=== PATIENT | female | born 1970 | race Caucasian/White ===

== ENCOUNTER 2022-02-17 21:45 | Inpatient (IN) | payer MEDICAID ==
[~2022-02-17] VITALS: Ht 154.7 cm; Wt 70.8 kg
--- NOTE | 2022-02-17 22:04 | NUR ---
TO ER BED 2. [id number] C/O R FOOT PAIN INFECTION X 3 DAYS. DESCRIBES PAIN BURNING 8/10 ON P/S. PT TOOK UNPRESCRIBED AMOXICILLIN X 2 DAYS. AWAITING MD FAITH
[2022-02-17] MEDS ORDERED: ONDANSETRON HCL/PF 4 MG/2 ML VIAL IVP ONE (22:30)
[2022-02-17] MEDS ORDERED: IV NS 0.9% 500 ML BAG IV ONE (22:30)
[2022-02-17] MEDS ORDERED: VANCOMYCIN 1 GM in IV D5W 250 ML IV ONE (22:30)
[2022-02-17] MEDS ORDERED: MORPHINE SULFATE INJ 2 MG/ML DISP.SYRIN IV ONE (22:30)
--- NOTE | 2022-02-17 23:00 | NUR ---
IV LINE ESTABLISHED, LHAND 24G
[2022-02-17] MEDS ORDERED: VANCOMYCIN 1 GM VIAL ONE (23:01)
[2022-02-17] MEDS ORDERED: MORPHINE SULFATE INJ 4 MG/ML DISP.SYRIN ONE (23:01)
[2022-02-17] MEDS ORDERED: ONDANSETRON HCL/PF 4 MG/2 ML VIAL ONE (23:01)
[2022-02-17] MEDS ORDERED: diphenhydrAMINE HCL ELIX 25 MG/10 ML UDC ONE (23:17)
[2022-02-17] MEDS ORDERED: diphenhydrAMINE HCL 50 MG/ML VIAL ONE (23:18)
[2022-02-17 23:23] LABS: BASOPHILS % (AUTO) 0.1 % (0.0-2.0); EOSINOPHILS % (AUTO) 0.8 % (0.0-6.0); HEMATOCRIT 43 % (33-45); HEMOGLOBIN 14.7 g/dL (11.5-14.8); LYMPHOCYTES # (AUTO) 0.3 K/uL (0.8-4.8); LYMPHOCYTES % (AUTO) 1.3 % (20.0-44.0); MEAN CORPUSCULAR HGB CONC 34 g/dl (31.0-36.0); MEAN CORPUSCULAR VOLUME 89 fL (82-100); MONOCYTES # (AUTO) 0.7 K/uL (0.1-1.30); MONOCYTES % (AUTO) 3.2 % (2.0-12.0); NEUTROPHILS # (AUTO) 20.9 K/uL (1.8-8.9); NEUTROPHILS % (AUTO) 94.6 % (43.0-81.0); PLATELET COUNT (AUTO) 207 K/uL (150-450); RED BLOOD CELL COUNT(AUTO) 4.83 MIL/uL (4.0-5.2); WHITE BLOOD COUNT (AUTO) 22.1 K/uL (4.3-11.0)
--- NOTE | 2022-02-17 23:25 | NUR ---
RASH NOTED ON L FOREARM AFTER ADMINISTERING MEDS, STOPPED IV INFUSION, PT DENIES ANY SOB. MADE AWARE.
--- NOTE | 2022-02-17 23:27 | NUR ---
COVID ANTIGEN SWAB COLLECTED AND SENT TO LAB
[2022-02-17] MEDS ORDERED: ACETAMINOPHEN 325 MG TABLET PO PRN (23:30)
[2022-02-17] MEDS ORDERED: diphenhydrAMINE HCL 50 MG/ML VIAL IV ONE (23:30)
[2022-02-17] MEDS ORDERED: hydrALAZINE HCL IV 20 MG VIAL IV PRN (23:30)
[2022-02-17] MEDS ORDERED: ONDANSETRON HCL/PF 4 MG/2 ML VIAL IVP PRN (23:30)
[2022-02-17 23:38] LABS: CALCIUM, SERUM 8.1 mg/dL (8.5-10.1); CREATININE 2.2 mg/dL (0.6-1.3)
[2022-02-17 23:42] LABS: ALBUMIN 2.5 g/dL (3.4-5.0); BILIRUBIN,DIRECT 0.1 mg/dL (0.0-0.2); BILIRUBIN,TOTAL 0.4 mg/dL (0.2-1.0); TOTAL PROTEIN, SERUM 6.5 g/dL (6.4-8.2)
[2022-02-18] MEDS ORDERED: MEROPENEM 1,000 MG in IV NS 0.9% 100 ML IV SCH ×2
[2022-02-18] MEDS ORDERED: POTASSIUM CHLORIDE 20 MEQ TAB.PRT.SR PO ONE ×2 (00:51)
--- NOTE | 2022-02-18 00:55 | NUR ---
PT RESTING COMFORTABLY IN BED, ASLEEP BUT EASILY AROUSABLE. WILL CONTINUE TO MONITOR
--- NOTE | 2022-02-18 01:01 | NUR ---
ROOM 312-2
--- NOTE | 2022-02-18 01:05 | NUR ---
REPORT GIVEN TO ROLAND LUCAS FOR JESSIKA
--- NOTE | 2022-02-18 01:15 | NUR ---
MS RN NOTE ADMISSION ADMISSION V/S FOLLOWS: 96/57, HR-82 BPM, RR-18, SATURATION 98% IN ROOM AIR, T-97.5, AND WEIGHT 156,3 LBS.
[2022-02-18 01:20] VITALS: BP 96/57
[2022-02-18] MEDS ORDERED: MEROPENEM 1,000 MG in IV NS 0.9% 100 ML IV ONE (01:30)
[2022-02-18] MEDS ORDERED: MEROPENEM 1 G VIAL IV ONE (01:38)
[2022-02-18] MEDS: IV NS 0.9% 1,000 ML IV SCH ×2 (01:46→08:53)
[2022-02-18] MEDS ORDERED: CEFEPIME 2 GM in IV D5W 100 ML IV ONE (02:00)
--- NOTE | 2022-02-18 02:00 | NUR ---
MS RN NOTE FAX SENT TO NURSING AUDIO TAPE [facility] FOR CEFEPIME 2G. NOT AVAIL ON FLOOR.
[2022-02-18] MEDS: POTASSIUM CL. PREMIX PERIPHER. 50 ML IV SCH ×4 (02:32→05:57)
--- NOTE | 2022-02-18 02:39 | NUR ---
MS JET BLADE POLISHER NOTES PATIENT BROUGHT UP @0115 VIA STRETCHER ACCOMPANIED BY ONE ER PERSONNEL. PATIENT IS A/OX4. NO S/S OF APPARENT DISTRESS IN ROOM AIR, WITH UNLABORED, SYMMETRICAL BREATHING. DENIES PAIN AT THIS TIME. L. HAND #24G INTACT, PATENT-- STARTED ON IV NS AND ANTIBIOTIC MERREM RUNNING @200CC/HR AT THIS TIME. PATIENT R. FOOT SWELLING, RED, WARM TO TOUCH WITH SCANT SEROUS DRAINAGE AND TO WHAT IT LOOKS LIKE SOME NECROTIC PARTS-- PICTURE TAKEN. PATIENT WISHES TO BE FULL CODE AT THIS TIME. NO IMMUNIZATIONS (COVID AND FLU) AND REFUSES VACCINE UPON DISCHARGE PER PATIENT PREFERENCE. BELONGINGS INVENTORIED AND CHECKED WITH REMITTANCE CLERK, SIGNED AND CHARTED. NEEDS ATTENDED AT THIS TIME. SAFETY IN PLACE. WILL MONITOR PATIENT FOR NOW AND FOLLOW THROUGH DOCTOR'S ORDERS.
[2022-02-18] MEDS ORDERED: CEFEPIME 1 GM VIAL ONE (03:25)
[2022-02-18 06:22] LABS: EOSINOPHILS % (AUTO) 1.8 % (0.0-6.0); HEMATOCRIT 44 % (33-45); HEMOGLOBIN 14.6 g/dL (11.5-14.8); LYMPHOCYTES # (AUTO) 0.4 K/uL (0.8-4.8); LYMPHOCYTES % (AUTO) 2.3 % (20.0-44.0); MEAN CORPUSCULAR HGB CONC 34 g/dl (31.0-36.0); MEAN CORPUSCULAR VOLUME 90 fL (82-100); MONOCYTES # (AUTO) 0.7 K/uL (0.1-1.30); MONOCYTES % (AUTO) 3.7 % (2.0-12.0); NEUTROPHILS # (AUTO) 18.1 K/uL (1.8-8.9); NEUTROPHILS % (AUTO) 92.2 % (43.0-81.0); PLATELET COUNT (AUTO) 201 K/uL (150-450); RED BLOOD CELL COUNT(AUTO) 4.84 MIL/uL (4.0-5.2); WHITE BLOOD COUNT (AUTO) 19.6 K/uL (4.3-11.0)
[2022-02-18 07:04] LABS: ALBUMIN 2.3 g/dL (3.4-5.0); BILIRUBIN,TOTAL 0.4 mg/dL (0.2-1.0); CALCIUM, SERUM 7.8 mg/dL (8.5-10.1); CREATININE 1.9 mg/dL (0.6-1.3); MAGNESIUM 1.9 mg/dL (1.8-2.4); POTASSIUM 3.7 mmol/L (3.5-5.1); TOTAL PROTEIN, SERUM 6.4 g/dL (6.4-8.2)
--- NOTE | 2022-02-18 07:28 | NUR ---
MS RN OPENING NOTES PATIENT IN BED ASLEEP, EASILY AWAKEN UPON CALL. A/OX4. ABLE TO MAKE NEEDS KNOWN. ON RA, TOLERATING WELL. BREATHING EVEN AND UNLABORED. NOT IN ANY SIGN OF DISTRESS. IV ACCESS ON LEFT HAND G #24, INTACT AND PATENT, WITH NS RUNNING AT 150ML/HR. SAFETY MEASURES IN PLACE: BED IN LOWEST AND LOCKED POSITION, SIDE RAILS UP X2, CALL LIGHT WITHIN REACH. ENCOURAGED PT TO USE THE CALL LIGHT AND CALL IF ASSISTANCE IS NEEDED. WILL CONTINUE TO MONITOR PT.
--- NOTE | 2022-02-18 07:30 | NUR ---
MS RN CLOSING NOTE PATIENT IN BED. A/OX4. NO S/S OF APPARENT DISTRESS IN ROOM AIR. PAIN TOLERABLE. ALL NEEDS ATTENDED. ALL SCHEDULED MEDICATIONS ADMINISTERED. IV NS RUNNING @150CC/HR. SAFETY IN PLACE. ENDORSED TO CECELIA FOR CONTINUITY OF CARE.
[2022-02-18 08:00] VITALS: BP 101/72
--- NOTE | 2022-02-18 08:45 | NUR ---
WOUND CARE CONSULT: PT PRESENTS WITH VERY SWOLLEN AND DISCOLORED RT FOOT AND ANKLE AREA WITH ZHANG DRAINAGE, PRESENT ON ADMISSION. DR ORTIZ NOTIFIED OF DPM CONSULT. IN AGREEMENT WITH PLAN OF CARE.
[2022-02-18] MEDS: HEPARIN SODIUM, PORCINE 5000 UNITS/1 ML VIAL SQ SCH ×2 (08:53→21:37)
[2022-02-18] MEDS ORDERED: VANCOMYCIN HCL 1.25 GM in IV D5W 260 ML IV SCH (09:00)
--- NOTE | 2022-02-18 11:57 | NUR ---
RN NOTES PLAN OF CARE GIVEN TO JUSTUS WEEMS. FAUSTINA WILL CONTINUE CARE FOR REST OF THE DAY.
--- NOTE | 2022-02-18 15:05 | NUR ---
SS Note: Pt. requested to speak with SW regarding applying for [employer]. SW met with pt. and provided pt. with the [employer] [[phone]].
[2022-02-18] MEDS ORDERED: IV NS 0.9% 1,000 ML IV PRN (15:42)
--- NOTE | 2022-02-18 15:43 | NUR ---
Patient seen by Dr. Gautam with new wound care orders and MD also ordered MRI without contrast of right foor and ankle dx: edema and to rule out deep abscess, patient made aware of the situation, MRI checklist completed and filed in chart.
[2022-02-18 16:00] VITALS: BP 108/72
--- NOTE | 2022-02-18 18:45 | NUR ---
RN CLOSING NOTES Patient lying in bed, no apparent distress noted, no shortness of breath, breathing even and unlabored, no dizziness, no palpitations, no chest pain, remained afebrile. All due medications given per MD order, tolerating well. Patient has an order for IV fluids, peripheral IV line left hand, patent, intact and flushing well, covered with clean, intact and dry dressings and no swelling, no redness, no c/o pain or discomfort at site. Wound care rendered as per MD order, tolerated well. Aspiration precautions observed at all times, kept head of bed elevated, all needs anticipated, kept clean and dry, patient repositioned frequently, safety precautions in place, frequent visual checks rendered, side rails up X 2, brakes locked, call light left within reach, will endorse to next shift for continuity of care.
--- NOTE | 2022-02-18 19:38 | NUR ---
RN OPENING NOTES Patient lying in bed, no apparent distress noted, no shortness of breath, breathing even and unlabored, no dizziness, no palpitations, no chest pain, remained afebrile. Patient has an order for IV fluids, peripheral IV line left hand, patent, intact and flushing well, covered with clean, intact and dry dressings and no swelling, no redness, no c/o pain or discomfort at site. Aspiration precautions observed at all times, kept head of bed elevated, all needs anticipated, kept clean and dry, patient repositioned frequently, safety precautions in place, frequent visual checks rendered, side rails up X 2, brakes locked, call light left within reach, will continue to monitor.
--- NOTE | 2022-02-18 19:54 | NUR ---
MS RN NOTES prn tylenol 650 mg given for mild foot pain tolerated well. all needs attended and anticipated. will continue to monitor.
[2022-02-18 20:11] VITALS: BP 121/69
[2022-02-18] MEDS: VANCOMYCIN 1 GM in IV D5W 250ml IV SCH (23:03)
[2022-02-19 04:17] VITALS: BP 106/56
[2022-02-19] MEDS: CEFEPIME 2 GM in IV D5W 100 ML IV SCH (05:32)
[2022-02-19 06:38] LABS: CALCIUM, SERUM 8.1 mg/dL (8.5-10.1); CREATININE 0.9 mg/dL (0.6-1.3); PHOSPHORUS 2.3 mg/dL (2.5-4.9); POTASSIUM 4.2 mmol/L (3.5-5.1)
--- NOTE | 2022-02-19 06:42 | NUR ---
RN CLOSING NOTES Patient lying in bed, no apparent distress noted, no shortness of breath, breathing even and unlabored, no dizziness, no palpitations, no chest pain, remained afebrile. Patient has an order for IV fluids, peripheral IV line left hand, patent, intact and flushing well, covered with clean, intact and dry dressings and no swelling, no redness, no c/o pain or discomfort at site. Aspiration precautions observed at all times, kept head of bed elevated, all needs anticipated, kept clean and dry, patient repositioned frequently, safety precautions in place, frequent visual checks rendered, side rails up X 2, brakes locked, call light left within reach, will endorse care to day shift nurse.
--- NOTE | 2022-02-19 07:00 | NUR ---
MS RN OPENING NOTES PATIENT LAYING IN BED, A/O X 4 AND ABLE TO MAKE NEEDS KNOWN. PATIENT TOLERATING WELL ON ROOM AIR WITH NO S/S RESPIRATORY DISTRESS. BREATHING EVEN AND UNLABORED AND NO COMPLAINTS OF PAIN OR DISCOMFORT AT THIS TIME. L HAND # 24 SL CLEAN, INTACT, AND FLUSHING WELL. SAFETY MEASURES IN PLACE: BED IN LOWEST LOCKED POSITION, SIDE RAILS UP X 2, CALL LIGHT WITHIN REACH. HOB ELEVATED. WILL CONTINUE TO MONITOR.
[2022-02-19 08:00] VITALS: BP 122/72
[2022-02-19 09:04] LABS: BASOPHILS % (AUTO) 0.1 % (0.0-2.0); EOSINOPHILS % (AUTO) 2.3 % (0.0-6.0); HEMATOCRIT 41 % (33-45); HEMOGLOBIN 13.5 g/dL (11.5-14.8); LYMPHOCYTES # (AUTO) 0.8 K/uL (0.8-4.8); LYMPHOCYTES % (AUTO) 4.3 % (20.0-44.0); MEAN CORPUSCULAR HGB CONC 33 g/dl (31.0-36.0); MEAN CORPUSCULAR VOLUME 92 fL (82-100); MONOCYTES # (AUTO) 0.9 K/uL (0.1-1.30); MONOCYTES % (AUTO) 5.2 % (2.0-12.0); NEUTROPHILS # (AUTO) 16.1 K/uL (1.8-8.9); NEUTROPHILS % (AUTO) 88.1 % (43.0-81.0); PLATELET COUNT (AUTO) 207 K/uL (150-450); WHITE BLOOD COUNT (AUTO) 18.3 K/uL (4.3-11.0)
[2022-02-19] MEDS: HEPARIN SODIUM, PORCINE 5000 UNITS/1 ML VIAL SQ SCH ×2 (09:25→21:17)
[2022-02-19] MEDS ORDERED: K PHOS NEUTRAL 250 MG TABLET PO ONE (14:00)
[2022-02-19 16:00] VITALS: BP 132/71
--- NOTE | 2022-02-19 19:00 | NUR ---
MS RN CLOSING NOTES PATIENT LAYING IN BED, A/O X 4 AND ABLE TO MAKE NEEDS KNOWN. PATIENT TOLERATING WELL ON ROOM AIR WITH NO S/S RESPIRATORY DISTRESS. BREATHING EVEN AND UNLABORED AND NO COMPLAINTS OF PAIN OR DISCOMFORT AT THIS TIME. L HAND # 24 SL CLEAN, INTACT, AND FLUSHING WELL. NENA PICC CLEAN, INTACT AND FLUSHING WELL. WOUND CARE PROVIDED DURING SHIFT, DRESSING ON RLE IS CLEAN, DRY, AND SECURE. ALL NEEDS MET. SAFETY MEASURES IN PLACE: BED IN LOWEST LOCKED POSITION, SIDE RAILS UP X 2, CALL LIGHT WITHIN REACH. HOB ELEVATED. WILL ENDORSE TO IT INSTRUCTOR FOR JESSIKA.
--- NOTE | 2022-02-19 19:25 | NUR ---
MS RN OPENING NOTES RECEIVED PATIENT ON BED; AWAKE, ALERT AND ORIENTED X4. BREATHING IS EVEN AND NONLABORED. NO SOB NOTED. NOT IN ANY FORM OF ACUTE DISTRESS. ON ROOM AIR, WELL TOLERATED. WITH MIDLINE AT RIGHT UPPER ARM G#18, PATENT, INTACT AND SALINE LOCKED. ABLE TO MAKE NEEDS KNOWN. SAFETY MEASURES IMPLEMENTED: CALL BUTTON AND TABLE WITHIN EASY REACH, SIDE RAILS UP X2, BED IN LOWEST LOCKED POSITION. WILL CONTINUE TO MONITOR
[2022-02-19 20:00] VITALS: BP 116/66
[2022-02-19] MEDS: VANCOMYCIN 1 GM in IV D5W 250ml IV SCH (23:55)
[2022-02-20] MEDS: CEFEPIME 2 GM in IV D5W 100 ML IV SCH (05:19)
[2022-02-20 06:19] LABS: CALCIUM, SERUM 8.2 mg/dL (8.5-10.1); CREATININE 0.9 mg/dL (0.6-1.3); PHOSPHORUS 3.1 mg/dL (2.5-4.9)
--- NOTE | 2022-02-20 07:00 | NUR ---
MS RN CLOSING NOTES PATIENT ON BED; AWAKE, ALERT AND ORIENTED X4. BREATHING EVENLY AND UNLABORED. NO SOB NOTED. NOT IN ANY FORM OF ACUTE DISTRESS. ON ROOM AIR, WELL TOLERATED. WITH MIDLINE AT RIGHT UPPER ARM G#18, PATENT, INTACT AND SALINE LOCKED. SAFETY MEASURES IN PLACED. ENDORSED TO MORNING NURSE FOR CONTINUITY OF CARE.
[2022-02-20] MEDS: VANCOMYCIN 1 GM in IV D5W 250ml IV SCH ×2 (09:51→20:34)
[2022-02-20] MEDS: HEPARIN SODIUM, PORCINE 5000 UNITS/1 ML VIAL SQ SCH ×2 (10:06→20:34)
[2022-02-20] MEDS: POTASSIUM CHLORIDE 20 MEQ TAB.PRT.SR PO SCH ×3 (12:19→13:43)
[2022-02-20 15:40] VITALS: BP 120/85
--- NOTE | 2022-02-20 19:15 | NUR ---
MS RN NOTES PT AWAKE IN BED, A/OX4. RESPIRATIONS EVEN/UNLABORED. SHE DENIES ANY PAIN AT THIS TIME. IV SITE: NENA MIDLINE INTACT/PATENT/FLUSHES WELL. R-FT WITH DRESSING IN PLACE, C/D/I. PT IN NO ACUTE DISTRESS. SAFETY MEASURES IN PLACE. WILL CONT TO MONITOR.
[2022-02-20 20:00] VITALS: BP 122/67
--- NOTE | 2022-02-21 05:44 | NUR ---
RN NOTE R-FT WOUND CULTURE SWAB DONE AND SENT TO LAB. WOUND CLEANED AND DRESSING CHANGED.
[2022-02-21] MEDS: CEFEPIME 2 GM in IV D5W 100 ML IV SCH (05:50)
--- NOTE | 2022-02-21 07:35 | NUR ---
RN NOTES NOT IN ACUTE DISTRESS. UP IN BSC, ABLE TO TRANSFER SELF. NO COMPLAINT OF PAIN AT THIS TIME. SAFETY MEASURES IN PLACE. WILL CONTINUE TO MONITOR.
[2022-02-21 07:56] LABS: CREATININE 0.7 mg/dL (0.6-1.3); MAGNESIUM 1.9 mg/dL (1.8-2.4); PHOSPHORUS 3.4 mg/dL (2.5-4.9); POTASSIUM 3.7 mmol/L (3.5-5.1)
[2022-02-21 08:00] VITALS: BP 130/71
[2022-02-21 08:05] LABS: CALCIUM, SERUM 8.6 mg/dL (8.5-10.1)
[2022-02-21 08:21] LABS: BASOPHILS # (AUTO) 0.1 K/uL (0.0-0.2); BASOPHILS % (AUTO) 0.3 % (0.0-2.0); EOSINOPHILS % (AUTO) 1.8 % (0.0-6.0); HEMATOCRIT 41 % (33-45); HEMOGLOBIN 13.6 g/dL (11.5-14.8); LYMPHOCYTES # (AUTO) 2.2 K/uL (0.8-4.8); LYMPHOCYTES % (AUTO) 12.6 % (20.0-44.0); MEAN CORPUSCULAR HGB CONC 34 g/dl (31.0-36.0); MEAN CORPUSCULAR VOLUME 90 fL (82-100); MONOCYTES # (AUTO) 1.4 K/uL (0.1-1.30); MONOCYTES % (AUTO) 8.2 % (2.0-12.0); NEUTROPHILS # (AUTO) 13.5 K/uL (1.8-8.9); NEUTROPHILS % (AUTO) 77.1 % (43.0-81.0); PLATELET COUNT (AUTO) 289 K/uL (150-450); RED BLOOD CELL COUNT(AUTO) 4.52 MIL/uL (4.0-5.2); WHITE BLOOD COUNT (AUTO) 17.5 K/uL (4.3-11.0)
[2022-02-21] MEDS: VANCOMYCIN 1 GM in IV D5W 250ml IV SCH ×2 (08:49→21:45)
[2022-02-21] MEDS: HEPARIN SODIUM, PORCINE 5000 UNITS/1 ML VIAL SQ SCH ×2 (08:50→21:00)
[2022-02-21] MEDS: MORPHINE SULFATE INJ 2 MG/ML DISP.SYRIN IV PRN ×2 (09:26→15:20)
--- NOTE | 2022-02-21 12:00 | NUR ---
RN NOTES PATIENT SEEN BY HARLEY GOOD NP, MADE AWARE OF PLAN OF CARE.
[2022-02-21 12:07] LABS: BAND % (MANUAL) 4 % (0.0-5.0); EOSINOPHILS % (MANUAL) 2 % (0-4); LYMPHOCYTES % (MANUAL) 14 % (16-48); MONOCYTES % (MANUAL) 6 % (0-11.0); MYELOCYTES % 1 % (0-0); NEUTROPHILS % (MANUAL) 73 (42-76)
[2022-02-21 16:00] VITALS: BP 118/69
--- NOTE | 2022-02-21 18:48 | NUR ---
RN NOTES PATIENT MEDICATED FOR PAIN INDICATED. NO ADVERSE CHANGE NOTED ON R FOOT. ABLE TO AMBULATE SHORT DISTANCE W/ MIN ASSIST. DUE MEDS GIVEN. SAFETY MEASURES MAINTAINED. WILL ENDORSE TO ASBESTOS BRAKE LINING FINISHER HELPER RN FOR JESSIKA.
--- NOTE | 2022-02-21 19:38 | NUR ---
MS RN OPENING NOTES PT RECEIVED RESTING IN BED, A/OX4, BREATHING EVEN AND UNLABORED; NO SOB NOTED; TOLERATING ROOM AIR WELL; ABLE TO MAKES NEEDS KNOWN; R FOOT CELLULITIS NOTED; NENA MIDLINE #18 INTACT AND PATENT, FLUSHING WELL; VANCO TROUGH SCHEDULED TON1999, WILL AWAIT FOR RESULTS PRIOR TO ADMINISTRATION OF IV MEDS; SAFETY PRECAUTIONS IMPLEMENTED; BED LOCKED IN LOW POSITION; SIDE RAILSX2; CALL LIGHT WITHIN REACH; WILL CONT TO MONITOR
[2022-02-21 20:00] VITALS: BP 136/79
[2022-02-22] MEDS: CEFEPIME 2 GM in IV D5W 100 ML IV SCH (05:18)
--- NOTE | 2022-02-22 06:07 | NUR ---
MS RN NOTES CONSTRUCTION CHECKER AT BEDSIDE, PT HARD STICK; LAB WILL TRY AGAIN LATER; WILL INFORM DAY SHIFT
--- NOTE | 2022-02-22 06:43 | NUR ---
MS RN CLOSING NOTES PT RESTING IN BED, AWAKE, A/OX4, BREATHING EVEN AND UNLABORED; NO SOB NOTED; TOLERATING ROOM AIR WELL; ABLE TO MAKES NEEDS KNOWN; R FOOT CELLULITIS NOTED; NENA MIDLINE #18 INTACT AND PATENT, FLUSHING WELL; ALL NEEDS RENDERED, PT VERBALIZED SHE SLEPT WELL THROUGHOUT THE NIGHT; SAFETY PRECAUTIONS IMPLEMENTED; BED LOCKED IN LOW POSITION; SIDE RAILSX2; CALL LIGHT WITHIN REACH; WILL ENDORSE CONTINUITY OF CARE TO ONCOMING SHIFT
--- NOTE | 2022-02-22 07:25 | NUR ---
MS RN OPENING NOTE RECEIVED PT IN BED AWAKE, A/O X4. ABLE TO MAKE NEEDS KNOW. ON RA, TOLERATING WELL. BREATHING EVEN AND UNLABORED. NOT IN ANY SIGN OF RESPIRATORY DISTRESS. IV ACCESS ON NENA ML G #18 AND L HAND G #24, INTACT AND PATENT. SAFETY MEASURE IN PLACE: BED IN LOWEST AND LOCKED POSITION, SIDE RAILS X2, CALL LIGHT WITHIN EASY REACHED AND ENCOURAGED PT TO USE THE CALL LIGHT TO CALL FOR ANY ASSISTANCE. WILL CONTINUE TO MONITOR PT.
--- NOTE | 2022-02-22 07:45 | NUR ---
MS RN CLOSING NOTE PT IN BED AWAKE, A/O X4. ABLE TO MAKE NEEDS KNOW. ON RA, TOLERATING WELL. BREATHING EVEN AND UNLABORED. NOT IN ANY SIGN OF RESPIRATORY DISTRESS. IV ACCESS ON NENA ML G #18, INTACT AND PATENT. ALL NEEDS AND CARE PROVIDED TO PT. SAFETY MEASURE IN PLACE: BED IN LOWEST AND LOCKED POSITION, SIDE RAILS X2. ENDORSED TO HABILITATIVE INTERVENTIONIST NURSE. Addendum: 02/22/22 at 2103 by RJ DWYER RN ERROR: WRONG TIME ENTERED.
[2022-02-22 08:00] VITALS: BP 117/73
[2022-02-22] MEDS: HEPARIN SODIUM, PORCINE 5000 UNITS/1 ML VIAL SQ SCH ×2 (09:58→20:26)
[2022-02-22] MEDS: VANCOMYCIN 1 GM in IV D5W 250ml IV SCH (10:00)
[2022-02-22 11:00] LABS: BASOPHILS # (AUTO) 0.2 K/uL (0.0-0.2); EOSINOPHILS % (AUTO) 1.6 % (0.0-6.0); HEMATOCRIT 41 % (33-45); HEMOGLOBIN 13.7 g/dL (11.5-14.8); LYMPHOCYTES % (AUTO) 11.4 % (20.0-44.0); MEAN CORPUSCULAR HGB CONC 34 g/dl (31.0-36.0); MEAN CORPUSCULAR VOLUME 90 fL (82-100); MONOCYTES # (AUTO) 0.9 K/uL (0.1-1.30); MONOCYTES % (AUTO) 5.5 % (2.0-12.0); NEUTROPHILS % (AUTO) 80.5 % (43.0-81.0); PLATELET COUNT (AUTO) 327 K/uL (150-450); RED BLOOD CELL COUNT(AUTO) 4.54 MIL/uL (4.0-5.2); WHITE BLOOD COUNT (AUTO) 17.3 K/uL (4.3-11.0)
--- NOTE | 2022-02-22 11:35 | NUR ---
RN NOTES RECEIVED A CALL FROM SPEECH THERAPIST, DR. ORTIZ WITH ORDERS FOR PT TO HAVE A PROCEDURE TOMORROW, 02/23/22 AT 1PM FOR RIGHT LOWER EXTREMITIES EXCISIONAL WOUND DEBRIDEMENT WITH INCISION AND DRAINAGE. PT WILL BE NPO AFTER MIDNIGHT.
[2022-02-22] MEDS: MORPHINE SULFATE INJ 2 MG/ML DISP.SYRIN IV PRN ×2 (12:02→20:22)
[2022-02-22 12:22] LABS: CALCIUM, SERUM 8.6 mg/dL (8.5-10.1); CREATININE 0.8 mg/dL (0.6-1.3); MAGNESIUM 1.9 mg/dL (1.8-2.4); POTASSIUM 3.5 mmol/L (3.5-5.1)
[2022-02-22 15:59] VITALS: BP 132/60
--- NOTE | 2022-02-22 19:45 | NUR ---
MS RN CLOSING NOTE PT IN BED AWAKE, A/O X4. ABLE TO MAKE NEEDS KNOW. ON RA, TOLERATING WELL. BREATHING EVEN AND UNLABORED. NOT IN ANY SIGN OF RESPIRATORY DISTRESS. IV ACCESS ON NENA ML G #18, INTACT AND PATENT. ALL NEEDS AND CARE PROVIDED TO PT. SAFETY MEASURE IN PLACE: BED IN LOWEST AND LOCKED POSITION, SIDE RAILS X2. ENDORSED TO FLORAL DECORATOR NURSE.
--- NOTE | 2022-02-22 19:55 | NUR ---
MS RN OPENING NOTES PT RECEIVED RESTING IN BED, A/OX4, BREATHING EVEN AND UNLABORED; NO SOB NOTED; TOLERATING ROOM AIR WELL; ABLE TO MAKES NEEDS KNOWN; R FOOT CELLULITIS NOTED; NENA MIDLINE #18 INTACT AND PATENT, FLUSHING WELL; PT REPORTING 9/10 R FOOT PAIN, PAIN MGMT RENDERED; SAFETY PRECAUTIONS IMPLEMENTED; BED LOCKED IN LOW POSITION; SIDE RAILSX2; CALL LIGHT WITHIN REACH; WILL CONT TO MONITOR
[2022-02-22 20:56] VITALS: BP 113/70
--- NOTE | 2022-02-22 21:00 | NUR ---
MS RN NOTES WOUND TX RENDERED ORDERED; PT AWARE SHE HAS TO BE NPO AT MIDNIGHT D/T PROCEDURE SCHEDULED 1300. PT OFFERED SNACKS; WILL CONT TO MONITOR
[2022-02-23] MEDS: CEFEPIME 2 GM in IV D5W 100 ML IV SCH (05:06)
[2022-02-23 06:06] LABS: CALCIUM, SERUM 8.1 mg/dL (8.5-10.1); CREATININE 0.7 mg/dL (0.6-1.3); POTASSIUM 3.4 mmol/L (3.5-5.1)
--- NOTE | 2022-02-23 06:46 | NUR ---
MS RN CLOSING NOTES PT RESTING IN BED, A/OX4, BREATHING EVEN AND UNLABORED; NO SOB NOTED; TOLERATING ROOM AIR WELL; ABLE TO MAKES NEEDS KNOWN; R FOOT CELLULITIS NOTED; WOUND CARE RENDERED; NENA MIDLINE #18 INTACT AND PATENT, FLUSHING WELL; PAIN MGMT RENDERED; ALL NEEDS RENDERED; SAFETY PRECAUTIONS IMPLEMENTED; BED LOCKED IN LOW POSITION; SIDE RAILSX2; CALL LIGHT WITHIN REACH; WILL ENDORSE CONTINUITY OF CARE TO ONCOMING SHIFT
--- NOTE | 2022-02-23 07:35 | NUR ---
MS RN OPENING NOTES RECEIVED PATIENT RESTING IN BED, A/OX4. ON RA WITH NO S/SX OF DISTRESS NOTED. DENIES PAIN AT THIS TIME. R FOOT CELLULITIS NOTED WITH DRESSING IN PLACE C/D/I. NENA MIDLINE G#18 INTACT AND PATENT. SAFETY PRECAUTIONS IN PLACE: BED LOCKED IN LOW POSITION, SIDE RAILS X2, CALL LIGHT WITHIN REACH, WILL CONTINUE TO MONITOR PATIENT
[2022-02-23 08:00] VITALS: BP 105/62
[2022-02-23] MEDS: HEPARIN SODIUM, PORCINE 5000 UNITS/1 ML VIAL SQ SCH ×2 (09:00→21:00)
--- NOTE | 2022-02-23 09:00 | NUR ---
RN NOTES PATIENT PENDING DEBRIDEMENT PROCEDURE. HEPARIN NOT ADMINISTERED.
[2022-02-23] MEDS ORDERED: AMOX-430 PO (09:54)
[2022-02-23] MEDS: POTASSIUM CL. PREMIX PERIPHER. 50 ML IV SCH ×2 (10:17→11:00)
[2022-02-23] MEDS ORDERED: ANESTHESIA TRAY IN PYXIS 1 EA TRAY MC ONE (11:03)
[2022-02-23] MEDS ORDERED: LIDOCAINE HCL/MPF 1% 30 ML VIAL IJ ONE (11:03)
[2022-02-23] MEDS ORDERED: BUPIVACAINE 0.5 % PF 150 MG/30 ML VIAL ONE (11:04)
--- NOTE | 2022-02-23 11:15 | NUR ---
RN NOTES PATIENT RECEIVED 1 DOSE OF 10MEQ POTASSIUM PHOS. CURRENTLY REFUSING TO RECEIVE THE 2ND DOSE D/T TOO MUCH PAIN. WILL INFORM MD AND MONITOR PATIENT.
--- NOTE | 2022-02-23 12:44 | NUR ---
RN NOTES PATIENT PICKED UP FOR PROCEDURE BY OR TECHS. TRANSFERRED VIA BED. CONSENTS SIGNED AND CHECKLIST COMPLETE.
[2022-02-23] MEDS ORDERED: FENTANYL PF 250MCG/5ML AMPUL ONE (12:51)
[2022-02-23] MEDS ORDERED: FAMOTIDINE/PF INJ 20 MG/2 ML VIAL IV ONE (12:52)
[2022-02-23] MEDS ORDERED: HYDROMORPHONE INJ 2 MG/ML DISP.SYRIN ONE (12:52)
[2022-02-23] MEDS ORDERED: MIDAZOLAM HCL 2 MG/2ML VIAL ONE (12:52)
--- NOTE | 2022-02-23 14:40 | NUR ---
RN NOTES RECEIVED PATIENT BACK IN ROOM FROM OR. TEMP 98.2, HR 85, RR 17, BP 116/63, O2 SAT 99% ON RA WITH RESPS EVEN AND UNLABORED NO ACUTE DISTRESS NOTED DRESSING. C/D/I TO RIGHT FOOT ELEVATED ON PILLOWS. PATIENT DENIES PAIN AT THIS TIME. WILL CARRY OUT ORDERS AND CONTINUE TO MONITOR PATIENT
[2022-02-23 16:00] VITALS: BP 110/68
[2022-02-23] MEDS ORDERED: POTASSIUM CHLORIDE 20 MEQ TAB.PRT.SR PO ONE (16:00)
--- NOTE | 2022-02-23 19:24 | NUR ---
RN NOTES ENDORSED REPORT TO THE MARKETING OPERATIONS ASSOCIATE NURSE FOR JESSIKA
--- NOTE | 2022-02-23 19:45 | NUR ---
MS RN OPENING NOTE PATIENT AWAKE IN BED, ALERT/ORIENTED X 4, PT ABLE TO MAKE NEEDS KNOWN. PT STABLE ON RA, NO S/S OF DISTRESS OR SOB NOTED, BREATHING EVEN AND UNLABORED. PT S/P WOUND DEBRIDEMENT TODAY TO RIGHT FOOT, NON-WEIGHT BEARING ON RIGHT FOOT FOR NEXT 24H PER DAY SHIFT NURSE, RIGHT FOOT ELEVATED WITH PILLOWS. NENA MIDLINE INTACT AND SALINE LOCKED. SAFETY MEASURES IN PLACE: CALL LIGHT WITHIN REACH, SIDE RAILS UP X 2, BED LOCKED IN LOWEST POSITION, BED ALARM ON. WILL CONTINUE TO MONITOR PATIENT
[2022-02-23 20:00] VITALS: BP 105/54
--- NOTE | 2022-02-23 21:47 | NUR ---
MS RN NOTE PATIENT HAS SCHEDULED HEPARIN 5000 UNITS, HOWEVER, PATIENT IS S/P WOUND DEBRIDEMENT OF RGHT FOOT WITH SOME BLEEDING THROUGH DRESSING. CONTACTED ENTERTAINMENT DIRECTOR MD REGARDING THIS WITH ORDERS TO HOLD HEPARIN
[2022-02-24] MEDS: MORPHINE SULFATE INJ 2 MG/ML DISP.SYRIN IV PRN ×2 (00:44→13:53)
[2022-02-24] MEDS: CEFEPIME 2 GM in IV D5W 100 ML IV SCH (06:33)
[2022-02-24 06:43] LABS: BASOPHILS % (AUTO) 0.3 % (0.0-2.0); HEMATOCRIT 37 % (33-45); HEMOGLOBIN 12.4 g/dL (11.5-14.8); LYMPHOCYTES # (AUTO) 1.8 K/uL (0.8-4.8); LYMPHOCYTES % (AUTO) 12.1 % (20.0-44.0); MEAN CORPUSCULAR HGB CONC 34 g/dl (31.0-36.0); MEAN CORPUSCULAR VOLUME 89 fL (82-100); MONOCYTES # (AUTO) 0.6 K/uL (0.1-1.30); MONOCYTES % (AUTO) 3.8 % (2.0-12.0); NEUTROPHILS # (AUTO) 12.3 K/uL (1.8-8.9); NEUTROPHILS % (AUTO) 81.8 % (43.0-81.0); PLATELET COUNT (AUTO) 344 K/uL (150-450); RED BLOOD CELL COUNT(AUTO) 4.09 MIL/uL (4.0-5.2)
[2022-02-24 06:57] LABS: CALCIUM, SERUM 7.9 mg/dL (8.5-10.1); CREATININE 0.7 mg/dL (0.6-1.3); POTASSIUM 3.8 mmol/L (3.5-5.1)
--- NOTE | 2022-02-24 07:35 | NUR ---
MS RN CLOSING NOTE PATIENT AWAKE IN BED, ALERT/ORIENTED X 4, PT ABLE TO MAKE NEEDS KNOWN. PT STABLE ON RA, NO S/S OF DISTRESS OR SOB NOTED, BREATHING EVEN AND UNLABORED. PT S/P WOUND DEBRIDEMENT TODAY TO RIGHT FOOT, NON-WEIGHT BEARING ON RIGHT FOOT UNTIL 430 PM, RIGHT FOOT ELEVATED WITH PILLOWS, DRESSING REINFORCED. NENA MIDLINE INTACT AND SALINE LOCKED. MEDICATIONS GIVEN ORDERED, PT NEEDS MET THROUGHOUT SHIFT. SAFETY MEASURES IN PLACE: CALL LIGHT WITHIN REACH, SIDE RAILS UP X 2, BED LOCKED IN LOWEST POSITION, BED ALARM ON. WILL ENDORSE TO DAY SHIFT NURSE FOR CONTINUITY OF CARE
--- NOTE | 2022-02-24 07:36 | NUR ---
ms rn received on bed,awake alert,oriented x4 not in any form of distress, respirations even and unlabored,no sob noted, lungs are clear, abdomen soft,positive bowel sounds, denies pain at this time,a ll needs attended.
[2022-02-24] MEDS: HEPARIN SODIUM, PORCINE 5000 UNITS/1 ML VIAL SQ SCH (09:14)
--- NOTE | 2022-02-24 09:20 | NUR ---
ms maguire breakfast served,due meds given,tolerated well.
--- NOTE | 2022-02-24 11:00 | NUR ---
ms rn was seen by dr. lindsey, changed dressing, pain med given.
--- NOTE | 2022-02-24 15:00 | NUR ---
ms rn ready to go home,waiting for case finisher to arrange placement.
--- NOTE | 2022-02-24 17:00 | NUR ---
ms rn ready to be discharge, waiting for her sister.
--- NOTE | 2022-02-24 19:25 | NUR ---
ms rn patient went home via taxi cab,all needs attended.
== END 2022-02-24 19:25 | disposition home health service (06) | DRG 720 ==
LOC: ER 21:54 → MED 02-18 01:07
PROVIDERS: ADMIT Internal Medicine; ATTEND Internal Medicine
PROC: 0HBKXZZ Excision of Right Lower Leg Skin, External Approach (ICD-10-PCS; 2022-02-18)
PROC: 05H933Z Insertion of Infusion Device into Right Brachial Vein, Percutaneous Approach (ICD-10-PCS; 2022-02-19)
PROC: 0JBQ0ZZ Excision of Right Foot Subcutaneous Tissue and Fascia, Open Approach (ICD-10-PCS; principal; 2022-02-23)
DX: A41.9 Sepsis, unspecified organism (principal); N17.0 Acute kidney failure with tubular necrosis; E87.2 Acidosis; E44.0 Moderate protein-calorie malnutrition; E87.1 Hypo-osmolality and hyponatremia; M62.82 Rhabdomyolysis; E88.09 Other disorders of plasma-protein metabolism, not elsewhere classified; L03.115 Cellulitis of right lower limb; L02.611 Cutaneous abscess of right foot; E86.0 Dehydration; Y92.9 Unspecified place or not applicable; E87.6 Hypokalemia; F15.10 Other stimulant abuse, uncomplicated; R03.0 Elevated blood-pressure reading, without diagnosis of hypertension; Y90.9 Presence of alcohol in blood, level not specified; F10.10 Alcohol abuse, uncomplicated; R26.2 Difficulty in walking, not elsewhere classified; E86.1 Hypovolemia; W57.XXXA Bitten or stung by nonvenomous insect and other nonvenomous arthropods, initial encounter; Z20.822 Contact with and (suspected) exposure to COVID-19
CPT/HCPCS: 36410; 36415; 73610-TC; 73630-TC; 73718-TC; 80048-TC; 80053-TC; 80076-TC; 80202-TC; 82550-TC; 83605-TC; 83735-TC; 84100-TC; 84703-TC; 85025-TC; 85652-TC; 85730-TC; 86140-TC; 87040-TC; 87070-TC; 87075-TC; 87081-TC; A6209; A6253; A6403; A6407; C9803; G0378; J0690; J0692; J1170; J1200; J1644; J2185; J2250; J2270; J2405; J2704; J2765; J3010; J3370; J3480; J3490; J7030; J7060; Q0163